=== PATIENT | female | born 1995 | race Caucasian/White ===

== ENCOUNTER 2024-12-13 09:00 | Inpatient (IN) ==
--- NOTE | 2024-12-14 07:29 | HISTORY & PHYSICAL EXAMINATION ---
Admit History Visit Reason Visit Reason: Other (scheduled primary delivery) Smoking Status: Never smoker Other Maternal History Other Maternal History: HPI: Feli Sage is a 29 yo at 39w2d who presents today for scheduled primary delivery for suspected macrosomia. Feeling well this morning. monitoring form, copied from record: Expected Delivery Route/Plan C section 12/13. 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 just moved to [facility] 09/08/24. her family is in [place]. first baby for both. was getting care at , transferred at 25 weeks. baby LGA, repeat sugar test 169 on 11/15, profiling. 11/14 US done and EFW 99%ile with BPD, HC and AC all greater the 99%ile and femur at 18th%ile. femur was 18%ile at anatomy scan vs AC at 79%ile. at , records scanned. LMP: FARRAH by LMP: 12/19 US: 8w5d on 04/22/24 at [facility] 12/20. Final FARRAH: 12/19/2024 Pre- Weight: 155 BMI: Blood type:A+ Antibody Screen: Neg CBC: HGB/HCT/PLT 12.8/38/272 RUB: IMM VZV:IMM HBsAg: Negative HepC:Non reactive RPR:Negative HIV: Negative Flu: Unsure if she has received this season Covid: Decl[place] GC/CT: Negative HSV: denies Genetic testing: NIPT- Neg AFP- NEG FAS: Placenta: anterior w/o previa Cord: 3VC LEONARDO: wnl EFW: 356g 72nd%ile 50gm OGCT: 106 TDAP: 09/15/2024 Breast Pump: has ordered RSV: CBC:HGB/HCT/PLT- 09/06/24- 11.5/34.0/276 RPR: nonreactive GBS:positive in urine 11/12/24 treated PP BC: PE: Vitals signs reviewed Gen: NAD Chest: non labored respirations Abd: gravid, non tender. EFW 4200-4400g Ext: no LE edema SVE: deferred monitoring: FHTs: 140s bpm baseline, + accel, - decel, mod variability [place]: irregular FHTs: Cat 1 Labs: CBC, T&S pending A/P: Feli Sage is a 29 yo at 39w2d who presents today for scheduled primary delivery for suspected macrosomia. - She has previously been counseled in clinic for primary delivery for suspected macrosomia with EFW approximately 5000g on last US. We reviewed limitations of ultrasound in estimating weight, possible may be less than 5000g. We discussed trial of labor as alternative to delivery. She would like to proceed with delivery. - We reviewed risks of delivery including pain, bleeding (possibly requiring blood transfusion or as a life-saving measure hysterectomy), infection, damage to nearby structures including bowel/bladder, longer recovery time , increased risk for DVT, risk of /injury to mom or baby. Consent was signed. Melvin Sainz MD HPI Current : Vital Signs Temperature 97.7 F 12/14/24 06:10 Pulse Rate 99 12/14/24 06:10 Respiratory Rate 18 12/14/24 06:10 Blood Pressure 119/84 12/14/24 06:10 O2 Saturation 97 12/14/24 06:00 Meds/Allgy Home Medications Ambulatory Orders Medication Instructions Recorded Confirmed vits no.126-ferrous fum 1 tab PO QDAY 09/11/24 12/10/24 28 mg iron-folic acid 800 mcg tablet (Classic ) famotidine 20 mg tablet (Pepcid) 20 mg PO BID #60 tabs 09/17/24 12/10/24 ferrous sulfate 325 mg (65 mg 325 mg PO QDAY #90 tabs 10/23/24 12/10/24 iron) tablet magnesium glycinate 100 mg (as 100 mg PO QDAY #90 tabs 10/23/24 12/10/24 glycinate) tablet omeprazole magnesium 20 mg 20 mg PO BID #60 tabs 11/06/24 12/10/24 tablet,delayed release (Prilosec OTC) blood-glucose,historic sites supervisor,cont #3 ea 11/15/24 12/10/24 ([employer]excom G7 Intermediate Project Manager) blood-glucose meter #1 ea 11/19/24 12/10/24 empty container (Needle Collection #1 ea 11/19/24 12/10/24 and Disposal misc) lancets 30 gauge ([place] Chek #100 ea 11/19/24 12/10/24 Lancets) blood sugar diagnostic (Easy Talk #50 ea 11/21/24 12/10/24 Glucose Test strips) Allergies Allergies Allergy/AdvReac Type Severity Reaction Status Date / Time No Known Drug Allergies Allergy Verified 12/14/24 07:15 PFSH Active Problems All Active Problems (Updated 12/11/24 @ 19:02 by Reina Saldana MD) Anxiety and depression (Acute) Dysuria (Acute) GBS (group B streptococcus) UTI complicating (Acute) Gestational diabetes (Acute) Heart palpitations (Acute) Hypomagnesemia (Acute) Impetigo (Acute) Large for dates complicating in third trimester, antepartum (Acute) Macrosomia affecting management of mother in third trimester (Acute) PCOS (polycystic ovarian syndrome) (Acute) Supervision of normal in third trimester (Acute) Vaginitis (Acute) Medical History Medical History (Updated 12/11/24 @ 19:02 by Reina Saldana MD) Female infertility due to ovulatory disorder Irregular menses Surgical History Surgical History (Updated 09/11/24 @ 11:24 by Peyton Shaw RN) [place] teeth extracted 2010 Family History Family History (Updated 09/11/24 @ 11:31 by ePyton Shaw RN) Father High blood pressure Maternal grandfather High blood pressure Mother Ovarian cancer Social History Social History (Updated 09/11/24 @ 13:34 by Peyton Shaw RN) Smoking Status: Never smoker Second hand tobacco smoke exposure: No Do you dip or chew tobacco?: No Do you vape?: No Living arrangement: At home Living Condition: With spouse/s.o. Relationship: Level: Independent Do you feel safe in your home environment?: Yes Suffered physical, verbal, emotional, or financial abuse?: No ETOH Use: None Substance Use: denies use Are you sexually active?: Yes Control Method: None Occupation: [employer] Physical Abdominal Exam Vital Signs: Temp Pulse Resp BP Pulse Ox 97.7 F 99 18 119/84 97 12/14/24 06:10 12/14/24 06:10 12/14/24 06:10 12/14/24 06:10 12/14/24 06:00 Plan for Labor Plan For Labor I expect patient to be DC'd or transferred within 96 hours.: Yes Conclusion/Plan Lab Results 12/14/24 07:20
--- NOTE | 2024-12-14 07:32 | ANESTHESIA PROCEDURE NOTE ---
Pre-Anesthesia VS, & Labs Diagnosis Surgical Diagnosis:: gestational DM, LGA Procedure Procedure: C/S Vitals Vital Signs: Temp Pulse Resp BP Pulse Ox 36.5 C 99 18 119/84 97 12/14/24 06:10 12/14/24 06:10 12/14/24 06:10 12/14/24 06:10 12/14/24 06:00 NPO NPO: >8 hours Is Patient ?: Yes Lab Results Current Lab Results: Laboratory Tests 12/14/24 07:25: POC Whole Bld Glucose 85 Meds/Allgy Home Medications Ambulatory Orders Medication Instructions Recorded Confirmed vits no.126-ferrous fum 1 tab PO QDAY 09/11/24 12/10/24 28 mg iron-folic acid 800 mcg tablet (Classic ) famotidine 20 mg tablet (Pepcid) 20 mg PO BID #60 tabs 09/17/24 12/10/24 ferrous sulfate 325 mg (65 mg 325 mg PO QDAY #90 tabs 10/23/24 12/10/24 iron) tablet magnesium glycinate 100 mg (as 100 mg PO QDAY #90 tabs 10/23/24 12/10/24 glycinate) tablet omeprazole magnesium 20 mg 20 mg PO BID #60 tabs 11/06/24 12/10/24 tablet,delayed release (Prilosec OTC) blood-glucose,basin operator,cont #3 ea 11/15/24 12/10/24 (Dexcom G7 Florist) blood-glucose meter #1 ea 11/19/24 12/10/24 empty container (Needle Collection #1 ea 11/19/24 12/10/24 and Disposal misc) lancets 30 gauge ([place] Chek #100 ea 11/19/24 12/10/24 Lancets) blood sugar diagnostic (Easy Talk #50 ea 11/21/24 12/10/24 Glucose Test strips) Allergies Allergies Allergy/AdvReac Type Severity Reaction Status Date / Time No Known Drug Allergies Allergy Verified 12/14/24 07:15 PFSH Active Problems All Active Problems (Updated 12/11/24 @ 19:02 by Reina Saldana MD) Macrosomia affecting management of mother in third trimester (Acute) Vaginitis (Acute) Gestational diabetes (Acute) Large for dates complicating in third trimester, antepartum (Acute) GBS (group B streptococcus) UTI complicating (Acute) Dysuria (Acute) Impetigo (Acute) Hypomagnesemia (Acute) Heart palpitations (Acute) Supervision of normal in third trimester (Acute) Anxiety and depression (Acute) PCOS (polycystic ovarian syndrome) (Acute) Medical History Medical History (Updated 12/11/24 @ 19:02 by Reina Saldana MD) Irregular menses Female infertility due to ovulatory disorder Surgical History Surgical History (Updated 09/11/24 @ 11:24 by Peyton Shaw RN) [place] teeth extracted 2010 Family History Family History (Updated 09/11/24 @ 11:31 by Peyton Shaw RN) Father High blood pressure Maternal grandfather High blood pressure Mother Ovarian cancer Social History Social History (Updated 09/11/24 @ 13:34 by Peyton Shaw RN) Smoking Status: Never smoker Second hand tobacco smoke exposure: No Do you dip or chew tobacco?: No Do you vape?: No Living arrangement: At home Living Condition: With spouse/s.o. Relationship: Level: Independent Do you feel safe in your home environment?: Yes Suffered physical, verbal, emotional, or financial abuse?: No ETOH Use: None Substance Use: denies use Are you sexually active?: Yes Control Method: None Occupation: [employer] Status: Full Code Anesthesia Exam (Expanded) Exam General: Alert, Oriented x3 and Cooperative Dental: WNL Mouth Openin Fingerbreadth Neck Mobility: Normal Mallampati classification: II Thyromental Distance: 4-6 cm Respiratory: Lungs clear Exam Exam Vital Signs: Vital Signs x48h Temp Pulse Pulse Resp BP BP Pulse Ox 12/14/24 06:10 36.5 C 99 18 119/84 12/14/24 06:00 36.5 C 104 H 18 119/84 97 Plan Plan Anesthesia Type: Spinal and Transverse Abdominis Plane (TAP) Block Consent for Procedure(s) Verified and Reviewed: Yes Code Status: Attempt Resuscitation ASA Classification ASA classification: 2-Mild systemic disease Is this case an emergency?: No
[2024-12-14] MEDS ORDERED: METOCLOPRAMIDE 10 MG/2 ML VIAL IVP PRN (07:35)
[2024-12-14] MEDS ORDERED: NALOXONE 0.4 MG/ML VIAL IVP PRN ×2 (07:35→09:28)
[2024-12-14] MEDS ORDERED: fentaNYL 100 MCG/2 ML VIAL IVP PRN (07:35)
[2024-12-14] MEDS ORDERED: HYDROmorphone 0.5 MG/0.5 ML SYRINGE IVP PRN (07:35)
[2024-12-14] MEDS ORDERED: ONDANSETRON 4 MG/2 ML VIAL IVP PRN (07:35)
[2024-12-14] MEDS ORDERED: MORPHINE 2 MG/ML CARPUJECT IVP PRN (07:35)
[2024-12-14] MEDS ORDERED: ePHEDrine 50 MG/ML VIAL IVP PRN (07:35)
[2024-12-14] MEDS ORDERED: ATROPINE ABBOJECT 1 MG/10 ML SYRINGE IVP PRN (07:35)
[2024-12-14 07:38] LABS: BASOPHILS % (AUTO) 0.4 %; EOSINOPHILS # (AUTO) 0.1 10^3/uL (0.0-0.7); EOSINOPHILS % (AUTO) 0.5 %; HCT - HEMATOCRIT 40.4 % (37.0-47.0); HGB - HEMOGLOBIN 13.6 g/dL (12.0-16.0); LYMPHOCYTES # (AUTO) 1.9 10^3/uL (1.5-3.5); LYMPHOCYTES % (AUTO) 18.9 %; MEAN CORPUSCULAR HEMOGLOBIN 31.6 pg (27.0-31.0); MEAN CORPUSCULAR HGB CONC 33.7 g/dL (32.0-36.0); MEAN PLATELET VOLUME 9.7 fL (7.9-10.8); MONOCYTES # (AUTO) 0.7 10^3/uL (0.0-1.0); MONOCYTES % (AUTO) 7.3 %; NEUTROPHILS # (AUTO) 7.1 10^3/uL (1.5-6.6); NEUTROPHILS % (AUTO) 72.1 %; PLT - PLATELET COUNT 290 10^3/uL (130-450); RED CELL DISTRIBUTION WIDTH 14.9 % (12.0-15.0); WHITE BLOOD COUNT 9.8 x10^3/uL (4.8-10.8)
[2024-12-14] MEDS ORDERED: fentaNYL 100 MCG/2 ML VIAL ONE (07:48)
[2024-12-14] MEDS: ACETAMINOPHEN 500 MG TABLET PO ONE (07:49)
[2024-12-14] MEDS: CITRIC ACID/SODIUM CITRATE 15 ML UDC PO ONE (07:50)
[2024-12-14] MEDS ORDERED: ONDANSETRON 4 MG/2 ML VIAL ONE (07:50)
[2024-12-14] MEDS ORDERED: SODIUM CHLORIDE 0.9% 10 ML VIAL ONE (07:53)
[2024-12-14] MEDS ORDERED: DEXAMETHASONE 4 MG/ML VIAL ONE (07:53)
[2024-12-14] MEDS ORDERED: ROPIVACAINE 0.5% PF 20 ML VIAL ONE (07:53)
[2024-12-14] MEDS ORDERED: OXYTOCIN/SODIUM CHLORIDE 500 ML IV ONE (07:58)
[2024-12-14] MEDS ORDERED: LACTATED RINGERS 1,000 ML IV SCH (08:00)
[2024-12-14] MEDS: ceFAZolin (2G) 2 GM in SODIUM CHLORIDE 0.9% MINIBAG 100 ML IV ONE (08:30)
[2024-12-14] MEDS ORDERED: hydrALAZINE INJ 20 MG/ML VIAL IVP PRN ×2 (09:28)
[2024-12-14] MEDS ORDERED: LABETALOL 20 MG/4 ML SYRINGE IVP PRN ×3 (09:28)
[2024-12-14] MEDS ORDERED: HYDROCORTISONE 1% CREAM 28 GM TUBE TOP PRN (09:28)
[2024-12-14] MEDS ORDERED: OXYTOCIN/SODIUM CHLORIDE 500 ML IV PRN (09:28)
[2024-12-14] MEDS ORDERED: NIFEdipine 10 MG CAPSULE PO PRN (09:28)
[2024-12-14] MEDS ORDERED: MAGNESIUM HYDROXIDE 2,400 MG/30 ML UDC PO PRN (09:28)
--- NOTE | 2024-12-14 09:31 | OPERATIVE REPORT ---
Operative Report General Admit Date: 12/14/24 Procedure Data: Operation Date: 12/14/24 07:30 Proposed Procedures p Section(Not Applicable) - Melvin Sainz MD Actual Procedures p Section(Not Applicable) - Melvin Sainz MD Pre-Op Diagnosis: SUSPECTED MACROSOMIA Anesthesia Type Spinal Case Staff Anesthesia Provider: Alka Holbrook Assisting Provider: Cindy Rogel Case Times Procedure Start: 12/14/24 08:35 Time out: 12/14/24 08:33 Other Other Information/Narrative: DATE OF PROCEDURE: 12/14/24 Surgeon: Melvin Sainz MD It Sales Representative: TAHMINA Polo was necessary as an golf player assistant for the entire procedure for adequate retraction and visualization, to shorten operative time, to assist with delivery of the , and to lower the risk of surgical injury Pre-Op Diagnosis: SIUP @ 39w2d, suspected macrosomia Post-Op Diagnosis: same Procedures: primary low transverse delivery Findings: Infant in cephalic presentation, copious clear amniotic fluid. Normal appearing uterus/tubes/ovaries. Specimens: none Anesthesia Technique: spinal Estimated Blood Loss: 700cc Blood Replacement: none Fluid Replacement: 1100cc Drains: molina catheter, drained 125cc clear yellow urine Complications: none Condition: stable Procedure in Detail: The patient was taken to the operating room where spinal anesthesia was placed. Molina catheter was placed . She was prepared and draped in the normal sterile fashion in the dorsal supine position with a leftward tilt. 2g Ancef was given for prophylaxis. A Pfannenstiel skin incision was made with the scalpel and carried down through the subcutaneous tissue in the midline. The remainder of the subcutaneous tissue was then bluntly. The fascia was incised in the midline and the incision was extended bluntly. The superior aspect of the fascial incision was grasped with two Wallace clamps, elevated, and the underlying rectus muscles dissected off both bluntly and with Mayos. Finger dissection was used to separate the rectus muscles in the midline and the peritoneum was entered bluntly and the layers extended bluntly. The peritoneal incision was further extended with the bovie. The bladder blade was then inserted. The lower uterine segment was incised in a transverse fashion with the scalpel. The uterine incision was extended bluntly. The bladder blade was removed and the infants head was brought to the hysterotomy. Fundal pressure applied and the delivered atraumatically. The cord was clamped and cut after 60 sec and the infant was handed off to the waiting provider. The placenta was removed with gentle uterine massage and cord traction. The uterus was exteriorized and cleared of all clots and debris with moist laparotomy sponges. The uterine incision was repaired with 0 Vicryl in a run rei fashion. A second layer of 0 monocryl was used in an imbricating fashion. Hemostasis at the hysterotomy noted. The posterior cul-de-sac was cleared of all clots and debris with laparotomy sponges, and the uterus was returned to the abdomen. The gutters were cleared of all clots. Excellent hemostasis of the hysterotomy was again noted. The rectus muscles were carefully examined and hemostatic. The fascia was reapproximated with 0-Vicry in a running fashion. The subcutaneous tissues was irrigated. The subcutaneous tissue was reapproximated with 2-0 Vicryl, and the skin was closed with 4-0 monocryl. Steristrips followed by a sterile dressing was placed. The patient tolerated the procedure well. Sponge, lap, needle, and instrument counts were correct at the end of the procedure. The patient was taken to the recovery room in stable condition. Melvin Sainz MD
[2024-12-14] MEDS ORDERED: KETOROLAC 30 MG/ML VIAL ONE (09:39)
[2024-12-14] MEDS: LACTATED RINGERS 1,000 ML IV SCH (10:30)
--- NOTE | 2024-12-14 11:10 | PHARMACY PROGRESS NOTE ---
Best Possible Medication History Admit Date and Time: 12/14/24 [id number] Home Medications Medication Instructions Recorded Confirmed Type vits no.126-ferrous fum 1 tab PO QDAY 09/11/24 12/14/24 History 28 mg iron-folic acid 800 mcg tablet (Classic ) famotidine 20 mg tablet (Pepcid) 20 mg PO BID #60 tabs 09/17/24 12/14/24 Rx ferrous sulfate 325 mg (65 mg 325 mg PO QDAY #90 tabs 10/23/24 12/14/24 Rx iron) tablet magnesium glycinate 100 mg (as 100 mg PO QDAY #90 tabs 10/23/24 12/14/24 Rx glycinate) tablet blood-glucose,account maintenance representative,cont #3 ea 11/15/24 12/10/24 Rx ([employer] G7 Radio Equipment Installer) blood-glucose meter #1 ea 11/19/24 12/10/24 Rx empty container (Needle Collection #1 ea 11/19/24 12/10/24 Rx and Disposal misc) lancets 30 gauge ([place] Chek #100 ea 11/19/24 12/10/24 Rx Lancets) blood sugar diagnostic (Easy Talk #50 ea 11/21/24 12/10/24 Rx Glucose Test strips) Processed by: Pharmacy Medications reviewed in ED?: No Medication History completed: Yes Patient Interview: Completed Secondary Source(s): Pharmacy records and Insurance records [facility] Statement: As the person ultimately responsible for medication therapy, providers are able to order a medication from an existing home medication list in [facility] via the "Reconcile Routine" prior to Confirmation of that medication by retail support manager. Such practice is discouraged except when the physician, in their clinical judgment, deems that a medical need exists for a medication without regard to previous use.
--- NOTE | 2024-12-14 11:20 | ANESTHESIA POST OP EVALUATION ---
Anesthesia Post Eval Post Anesthesia Eval Vitals: Last Vital Signs Temp 37.0 C 12/14/24 10:04 Pulse 90 12/14/24 10:04 Resp 14 12/14/24 10:04 BP 129/83 12/14/24 10:04 Pulse Ox 99 12/14/24 10:04 CV Function Including HR & BP: Stable Pain Control: Satisfactory Nausea & Vomiting: Negative Mental Status: Baseline Respiratory Status: Airway Patent Hydration Status: Satisfactory Anesthesia Complications: None
[2024-12-14] MEDS: ACETAMINOPHEN 500 MG TABLET PO SCH (15:54)
[2024-12-14] MEDS: KETOROLAC 30 MG/ML VIAL IVP SCH (15:55)
[2024-12-14] MEDS: FAMOTIDINE 20 MG TABLET PO SCH (22:19)
[2024-12-14] MEDS: SIMETHICONE CHEW 80 MG TABLET PO PRN (22:19)
[2024-12-14] MEDS: DOCUSATE SODIUM 100 MG CAPSULE PO SCH (22:20)
[2024-12-15 06:44] LABS: HGB - HEMOGLOBIN 10.3 g/dL (12.0-16.0); MEAN CORPUSCULAR HEMOGLOBIN 31.4 pg (27.0-31.0); MEAN CORPUSCULAR HGB CONC 33.2 g/dL (32.0-36.0); MEAN CORPUSCULAR VOLUME 94.5 fL (81.0-99.0); MEAN PLATELET VOLUME 9.6 fL (7.9-10.8); RED BLOOD COUNT 3.28 10^6/uL (4.20-5.40); WHITE BLOOD COUNT 14.8 x10^3/uL (4.8-10.8)
[2024-12-15] MEDS: IBUPROFEN 600 MG TABLET PO SCH (10:05)
[2024-12-15] MEDS: oxyCODONE 5 MG TABLET PO PRN (10:27)
--- NOTE | 2024-12-15 10:30 | PROVIDER PROGRESS NOTE ---
Subjective Prog Note Date Prog Note Date: 12/15/24 Prog Note Time: 10:27 Subjective Subjective: Feli reports overall feeling well this morning. Mcgraw catheter was removed around 4AM, she has been up out of bed and able to urinate spontaneously. Tolerating regular diet. Reports bleeding is normal. Passing some flatus. Would really like to get up and take a shower. and supplementing with formula. Current Medications Current Medications Current Medications: Current Medications Generic Name Dose Route Start Last Admin Trade Name Mario PRN Reason Stop Dose Admin Acetaminophen 1,000 mg 12/14/24 10:00 12/15/24 08:41 Acetaminophen 500 Mg Tablet PO 1,000 mg Q8H ANISH Administration Docusate Sodium 200 mg 12/14/24 21:00 12/15/24 08:41 Docusate Sodium 100 Mg Capsule PO 200 mg BID ANISH Administration Famotidine 20 mg 12/14/24 21:00 12/14/24 22:19 Famotidine 20 Mg Tablet PO 20 mg BID ANISH Administration Hydralazine HCl 10 mg 12/14/24 09:28 Hydralazine Inj 20 Mg/Ml Vial IVP .ONCE PRN SBP> or= 160 OR DBP> or= 110 Protocol Hydralazine HCl 5 - 20 mg 12/14/24 09:28 Hydralazine Inj 20 Mg/Ml Vial IVP Q20M PRN SBP> or= 160 OR DBP> or= 110 Protocol Hydrocortisone 1 applic 12/14/24 09:28 Hydrocortisone 1% Cream 28 Gm Tube TOP QID PRN Hemorrhoids Lactated Ringer's 1,000 mls @ 125 mls/hr 12/14/24 06:00 12/14/24 10:30 Lr IV 125 mls/hr .Q8H ANISH Administration Oxytocin/Sodium Chloride 500 mls @ 999 mls/hr 12/14/24 09:28 Pitocin/Sodium Chloride IV PRN PRN POST- HEMORR PREVENTION Protocol 999 MILLIUNIT/MIN Ibuprofen 600 mg 12/15/24 06:00 12/15/24 10:05 Ibuprofen 600 Mg Tablet PO 600 mg Q6HR ANISH Administration Labetalol HCl 20 - 40 mg 12/14/24 09:28 Labetalol 20 Mg/4 Ml Syringe IVP Q10M PRN SBP> or= 160 OR DBP> or= 110 Protocol Labetalol HCl 20 mg 12/14/24 09:28 Labetalol 20 Mg/4 Ml Syringe IVP .ONCE PRN SBP> or= 160 OR DBP> or= 110 Protocol Labetalol HCl 20 - 80 mg 12/14/24 09:28 Labetalol 20 Mg/4 Ml Syringe IVP Q10M PRN SBP> or= 160 OR DBP> or= 110 Protocol Magnesium Hydroxide 2,400 mg 12/14/24 09:28 Magnesium Hydroxide 2,400 Mg/30 Ml Udc PO Q8HR PRN Constipation Naloxone HCl 0.4 mg 12/14/24 09:28 Naloxone 0.4 Mg/Ml Vial IVP .ONCE PRN Opioid overdose Nifedipine 10 - 20 mg 12/14/24 09:28 Nifedipine 10 Mg Capsule PO Q20M PRN SBP> or= 160 OR DBP> or= 110 Protocol Oxycodone HCl 5 mg 12/14/24 09:28 Oxycodone 5 Mg Tablet PO Q4HR PRN Severe Pain 6 -10 Pantoprazole Sodium 40 mg 12/15/24 07:00 Pantoprazole 40 Mg Tablet PO BIDAC ANISH Simethicone 80 mg 12/14/24 09:28 12/15/24 08:44 Simethicone Chew 80 Mg Tablet PO 80 mg TID PRN Administration Gas Objective Vital Signs/Intake & Output Reviewed Vital Signs: Yes Vital Signs: Vital Signs x48h Temp Pulse Resp BP Pulse Ox 12/15/24 08:50 98.6 F 83 16 124/78 12/15/24 04:09 98.4 F 86 16 116/73 98 Intake & Output: Intake & Output 12/12/24 12/13/24 12/14/24 12/15/24 23:59 23:59 23:59 23:59 Intake Total 2600 / 2600 100 / 100 Output Total 1400 / 1400 2550 / 2550 Balance 1200 / 1200 -2450 / -2450 Weight (kg) 197 lb Objective Comments/Other: Gen: NAD Chest: non labored respirations Abd: soft, non distended, fundus firm, appropriately TTP, bandage in place is clean and dry. Ext: no LE edema, no evidence of DVT Lab Results 12/15/24 06:11 Other Labs: Lab Results x24hrs 12/15/24 Range/Units 06:11 WBC 14.8 H (4.8-10.8) x10^3/uL RBC 3.28 L (4.20-5.40) 10^6/uL Hgb 10.3 L (12.0-16.0) g/dL Hct 31.0 L (37.0-47.0) % MCV 94.5 (81.0-99.0) fL MCH 31.4 H (27.0-31.0) pg MCHC 33.2 (32.0-36.0) g/dL RDW 15.0 (12.0-15.0) % Plt Count 253 (130-450) 10^3/uL MPV 9.6 (7.9-10.8) fL Assessment/Plan Problem List (1) care following delivery: Impression: Continue routine care. Discussed possible discharge home tomorrow if she and baby are ready to go. (2) Gestational diabetes: Impression: 2hr GTT
[2024-12-16] MEDS: PANTOPRAZOLE 40 MG TABLET PO SCH (08:08)
[2024-12-16 10:04] VITALS: O2SAT 98
--- NOTE | 2024-12-16 12:08 | PROVIDER PROGRESS NOTE ---
Subjective Prog Note Date Prog Note Date: 12/16/24 Prog Note Time: 12:04 Subjective Subjective: Feli reports she is overall feeling well this morning, tired. Was able to sleep a little more last night the the night prior. She feels that current pain medications are controlling her pain. Ambulating around the room. Urinating without difficulty and passing flatus. She is . Baby at bedside. She would like to stay until tomorrow. Current Medications Current Medications Current Medications: Current Medications Generic Name Dose Route Start Last Admin Trade Name Freq PRN Reason Stop Dose Admin Acetaminophen 1,000 mg 12/14/24 10:00 12/16/24 09:14 Acetaminophen 500 Mg Tablet PO 1,000 mg Q8H ANISH Administration Docusate Sodium 200 mg 12/14/24 21:00 12/16/24 09:14 Docusate Sodium 100 Mg Capsule PO 200 mg BID ANISH Administration Famotidine 20 mg 12/14/24 21:00 12/16/24 08:08 Famotidine 20 Mg Tablet PO Not Given BID ANISH Hydralazine HCl 10 mg 12/14/24 09:28 Hydralazine Inj 20 Mg/Ml Vial IVP .ONCE PRN SBP> or= 160 OR DBP> or= 110 Protocol Hydralazine HCl 5 - 20 mg 12/14/24 09:28 Hydralazine Inj 20 Mg/Ml Vial IVP Q20M PRN SBP> or= 160 OR DBP> or= 110 Protocol Hydrocortisone 1 applic 12/14/24 09:28 Hydrocortisone 1% Cream 28 Gm Tube TOP QID PRN Hemorrhoids Lactated Ringer's 1,000 mls @ 125 mls/hr 12/14/24 06:00 12/14/24 10:30 Lr IV 125 mls/hr .Q8H ANISH Administration Oxytocin/Sodium Chloride 500 mls @ 999 mls/hr 12/14/24 09:28 Pitocin/Sodium Chloride IV PRN PRN POST- HEMORR PREVENTION Protocol 999 MILLIUNIT/MIN Ibuprofen 600 mg 12/15/24 06:00 12/16/24 11:14 Ibuprofen 600 Mg Tablet PO 600 mg Q6HR ANISH Administration Labetalol HCl 20 - 40 mg 12/14/24 09:28 Labetalol 20 Mg/4 Ml Syringe IVP Q10M PRN SBP> or= 160 OR DBP> or= 110 Protocol Labetalol HCl 20 mg 12/14/24 09:28 Labetalol 20 Mg/4 Ml Syringe IVP .ONCE PRN SBP> or= 160 OR DBP> or= 110 Protocol Labetalol HCl 20 - 80 mg 12/14/24 09:28 Labetalol 20 Mg/4 Ml Syringe IVP Q10M PRN SBP> or= 160 OR DBP> or= 110 Protocol Magnesium Hydroxide 2,400 mg 12/14/24 09:28 Magnesium Hydroxide 2,400 Mg/30 Ml Udc PO Q8HR PRN Constipation Naloxone HCl 0.4 mg 12/14/24 09:28 Naloxone 0.4 Mg/Ml Vial IVP .ONCE PRN Opioid overdose Nifedipine 10 - 20 mg 12/14/24 09:28 Nifedipine 10 Mg Capsule PO Q20M PRN SBP> or= 160 OR DBP> or= 110 Protocol Oxycodone HCl 5 mg 12/14/24 09:28 12/16/24 09:15 Oxycodone 5 Mg Tablet PO 5 mg Q4HR PRN Administration Severe Pain 6 -10 Pantoprazole Sodium 40 mg 12/15/24 07:00 12/16/24 08:08 Pantoprazole 40 Mg Tablet PO Not Given BIDAC ANISH Simethicone 80 mg 12/14/24 09:28 12/16/24 09:15 Simethicone Chew 80 Mg Tablet PO 80 mg TID PRN Administration Gas Objective Vital Signs/Intake & Output Reviewed Vital Signs: Yes Vital Signs: Vital Signs x48h Temp Pulse Resp BP Pulse Ox 12/16/24 09:30 98.6 F 79 16 119/81 98 12/16/24 05:00 98.4 F 78 18 118/78 99 Intake & Output: Intake & Output 12/13/24 12/14/24 12/15/24 12/16/24 23:59 23:59 23:59 23:59 Intake Total 2600 / 2600 500 / 500 Output Total 1400 / 1400 2550 / 2550 Balance 1200 / 1200 -2049 / -2049 Weight (kg) 197 lb Objective Comments/Other: Gen: NAD Chest: non labored respirations Abd: soft, fundus firm, non-distended. Incision: clean, dry, intact with steri strips in place Ext: no LE edema, no evidence of DVT Lab Results 12/15/24 06:11 Assessment/Plan Problem List (1) care following delivery: Impression: Overall doing well. Would like to stay today for additional breast feeding support and help with care. Anticipate discharge home tomorrow. (2) Gestational diabetes: Impression: 2hr GTT
[2024-12-17 06:02] VITALS: TEMP 98.2
[2024-12-17 13:41] VITALS: BP 119/75
--- NOTE | 2024-12-17 18:22 | Labor Flowsheet ---
Labor Flowsheet Datetime Report Generated by CPN: 12/17/2024 18:21 Datetime: 12/14/2024 13:20 VAGINAL EXAM Membranes Ruptured Date/Time: 12/14/2024 08:39 Membranes Rupture Method: Artificial Amniotic Fluid Color: Clear Amniotic Fluid Amount: Large Amniotic Fluid Odor: Normal
--- NOTE | 2024-12-18 20:42 | Discharge Summary ---
"Discharge Summary Admit Date: 12/14/24 Discharge Date: 12/17/24 Discharging Provider: Reina Saldana Code Status: Attempt Resuscitation Discharge Facility Name: home DIAGNOSES Admission Diagnoses: at 39 weeks. macrosomia. Discharge Diagnoses with Status of Each Condition: Macrosomia delivery by c section. anxiety and depression HPI History of Present Illness: 29 yo [employer] patient with first . Baby is quite large. EFW 5 kg. She elected to have a primary c section and is admitted for this. CONSULTS | PROCEDURES Procedures: Primary Low Transverse C section HOSPITAL COURSE Hospital Course: Feli was admitted in am and c section was performed without complication. Post course was unremarkable. Baby boy Dhiraj weighed 9 pound 15 oz. She was discharged on POD #3. ALLERGIES Allergies Allergy/AdvReac Type Severity Reaction Status Date / Time No Known Drug Allergies Allergy Verified 12/14/24 07:15 MEDICATIONS Ambulatory Orders Medication Instructions Recorded Confirmed vits no.126-ferrous fum 1 tab PO QDAY 09/11/24 12/14/24 28 mg iron-folic acid 800 mcg tablet (Classic ) famotidine 20 mg tablet (Pepcid) 20 mg PO BID #60 tabs 09/17/24 12/14/24 ferrous sulfate 325 mg (65 mg 325 mg PO QDAY #90 tabs 10/23/24 12/14/24 iron) tablet magnesium glycinate 100 mg (as 100 mg PO QDAY #90 tabs 10/23/24 12/14/24 glycinate) tablet acetaminophen 325 mg capsule 325 - 650 mg (1 - 2 x 325 mg) PO 12/17/24 Q4H PRN pain #60 caps docusate sodium 100 mg capsule 100 mg PO BID PRN constipation #60 12/17/24 (Colace) caps ibuprofen 600 mg tablet 600 mg PO Q6H PRN pain #30 tabs 12/17/24 oxycodone 5 mg tablet 5 mg PO Q4H PRN pain #10 tabs 12/17/24 polyethylene glycol 3350 17 17 g PO QDAY PRN constipation #510 12/17/24 gram/dose oral powder (Miralax) grams PHYSICAL EXAM AT DISCHARGE General Appearance: positive No acute distress Respiratory: positive No respiratory distress Cardiovascular: positive Regular rate & rhythm Abdomen: positive Non-tender and Other (wound healing well. ) Skin: positive Color nml and No rash Extremities: positive Non-tender and No pedal edema Neurologic/Psychiatric: positive Oriented x3 and Mood/affect nml LABS 12/15/24 06:11 FOLLOW UP Follow Up: in clinic in 1 weeks TIME SPENT Time Spent in Discharge (Minutes): 30 Discharge Plan Discharge Patient Disposition: 06 Home Health Service Condition: Stable Prescriptions: Continued famotidine [Pepcid] 20 mg tablet 20 mg PO BID Qty: 60 6RF ibuprofen 600 mg tablet 600 mg PO Q6H PRN (Reason: pain) Qty: 30 1RF docusate sodium [Colace] 100 mg capsule 100 mg PO BID PRN (Reason: constipation) Qty: 60 1RF acetaminophen 325 mg capsule 325 - 650 mg PO Q4H PRN (Reason: pain) Qty: 60 1RF oxycodone 5 mg tablet 5 mg PO Q4H PRN (Reason: pain) Qty: 10 0RF polyethylene glycol 3350 [Miralax] 17 gram/dose powder 17 g PO QDAY PRN (Reason: constipation) Qty: 510 0RF Classic 28 mg iron- 800 mcg tablet 1 tab PO QDAY ferrous sulfate 325 mg (65 mg iron) tablet 325 mg PO QDAY Qty: 90 3RF magnesium glycinate 100 mg tablet 100 mg PO QDAY Qty: 90 4RF Discontinued (DME) Dexcom G7 [employer] Misc See Rx Instructions .Route Qty: 3 5RF Rx Instructions: As directed (DME) Easy Talk Glucose Test Strip See Rx Instructions .Route Qty: 50 3RF Rx Instructions: testing fasting and 1 hr after meals any covered monitor/strips. (DME) blood-glucose meter Kit See Rx Instructions .Route Qty: 1 0RF Rx Instructions: As directed, any glucometer that is covered. (DME) Needle Collection and Disposal Misc See Rx Instructions .ROUTE .MEDSUPPLY Qty: 1 8RF Rx Instructions: As directed for lancet disposal (DME) lancets [Clarinda Chek Lancets] 30 gauge misc See Rx Instructions .Route Qty: 100 1RF Rx Instructions: As directed. any covered brand Activity Restrictions: as below Activity Restrictions/Additional Instructions: nothing in vagina for 6 week. no lifting more than 15 pounds for 6 weeks. OK to shower, no bath for 2 weeks. call if significant headache, or very heavy bleeding. Constipation is common. Be sure to eat lots of fruits and veggie, drink lots of water. Coffee can be helpful if you like it and 1 cup is fine for baby. Diet: Regular Print Language: Serbian Patient Instructions:"
== END 2024-12-17 18:02 | disposition home health service (06) | DRG 788 ==
LOC: FBP 12-14 05:31
PROVIDERS: ADMIT Obstetrics & Gynecology; ATTEND Obstetrics & Gynecology
DX: Z91.85 Personal history of military service; Z3A.39 39 weeks gestation of pregnancy; O99.344 Other mental disorders complicating childbirth; F41.9 Anxiety disorder, unspecified; Z37.0 Single live birth; F32.A Depression, unspecified; O24.429 Gestational diabetes mellitus in childbirth, unspecified control; O36.63X0 Maternal care for excessive fetal growth, third trimester, not applicable or unspecified